=== PATIENT | male | born 1995 | race Caucasian/White ===

== ENCOUNTER 2018-09-27 08:26 | Emergency (ER) | payer BC, MEDICAID ==
[~2018-09-27] VITALS: Ht 177.8 cm; Wt 80.3 kg
[2018-09-27 08:45] VITALS: BP 127/71
[2018-09-27] MEDS ORDERED: BENZ-16 PO (08:56)
[2018-09-27] MEDS ORDERED: AMOX-580 PO (08:56)
== END 2018-09-27 09:41 | disposition home or self-care (01) ==
LOC: ER 08:26
DX: J06.9 Acute upper respiratory infection, unspecified (principal); F17.200 Nicotine dependence, unspecified, uncomplicated
CPT/HCPCS: 99283